=== PATIENT | male | born 1985 | race Caucasian/White ===

== ENCOUNTER 2024-10-11 19:57 | Emergency (ER) | payer BC ==
[~2024-10-11] VITALS: Ht 185.4 cm; Wt 122.5 kg
[2024-10-11 23:03] LABS: PLATELET COUNT (AUTO) 229 K/uL (152-348); RED BLOOD CELL COUNT(AUTO) 4.92 MIL/uL (4.06-5.63); RED CELL DISTRIBUTION WIDTH 14.0 % (12.1-16.2); WHITE BLOOD COUNT (AUTO) 7.6 K/uL (3.6-10.2)
[2024-10-11] MEDS ORDERED: POTASSIUM CHLORIDE 20 MEQ TAB.PRT.SR ONE (23:05)
[2024-10-11] MEDS ORDERED: HYDROMORPHONE 1 MG/1 ML DISP.SYRIN ONE (23:06)
[2024-10-11 23:08] LABS: NEUTROPHILS % (MANUAL) 0 % (42-75)
[2024-10-11 23:15] LABS: ASPARTATE AMINOTRANSFERASE 24 U/L (15-37); CREATININE 0.8 mg/dL (0.6-1.3); SODIUM SERUM 139 mmol/L (136-145); TOTAL PROTEIN, SERUM 6.8 g/dL (6.4-8.2); UREA NITROGEN, BLOOD 21 mg/dL (7-18)
[2024-10-11] MEDS ORDERED: PRED50TA PO (23:22)
[2024-10-11] MEDS ORDERED: AZIT500T PO (23:22)
[2024-10-11] MEDS ORDERED: AZITHROMYCIN 250 MG TABLET ONE (23:30)
[2024-10-11] MEDS: AZITHROMYCIN 250 MG TABLET PO ONE (23:34)
[2024-10-11 23:37] VITALS: BP 132/70; O2SAT 96
== END 2024-10-11 23:37 | disposition home or self-care (01) ==
LOC: ER 20:17
DX: J18.9 Pneumonia, unspecified organism (principal); E03.9 Hypothyroidism, unspecified; R07.9 Chest pain, unspecified; Z79.52 Long term (current) use of systemic steroids; Z20.822 Contact with and (suspected) exposure to COVID-19
CPT/HCPCS: 99284; 71045; 87426; 87804 ×2; 80076; 80048; 83880; 85025; 84484; 36415; 85027; 85007; J7512; 70030-TC; A4606; A4663; J1171; Q0144